=== PATIENT | male | born 1955 | race Caucasian/White ===

== ENCOUNTER 2024-12-31 11:46 | Emergency (ER) | payer MEDICARE, OTHER, SELFPAY ==
[2024-12-31 11:51] VITALS: BP 117/76
--- NOTE | 2024-12-31 12:33 | ED.SKININJ ---
HPI-Injury
General
Chief Complaint: Skin Surface Trauma
Source: patient
Exam Limitations: none
Time Seen by Provider: 12/31/24 12:12
History of Present Illness-Injury
Initial Injury comments:
69-year-old male presents with laceration to left thumb he sustained today. He was using a utility knife to cut a cardboard box and slipped and cut his thumb. No numbness or tingling. No loss of function. No other complaints at this time. Last
tetanus unknown
Past History
Social History
Tobacco: Smoker
Personal: Single
Living: with family
Employment: Employed
Phy Exam
Physical Exam
Physical Exam:
General: Well-appearing male no acute respiratory distress skin: 3.5 cm superficial ragged laceration
Radial aspect base of left thumb at the edge of the thenar eminence. No significant bleeding. No tendon or vascular involvement
Musculoskeletal exam: Good range of motion left thumb
Neurologic sensation left thumb
Course
Orders/Labs/Results
Orders:
Orders
12/31/24 12:32
Tetanus/Diphth/Acelpertussis [Adacel] 0.5 ml IM .ONCE ONE
Vital Signs
Initial and Last Documented VS:
Initial Vital Signs
Temp Pulse Resp BP Pulse Ox
98.7 F 114 18 117/76 96
12/31/24 11:51 12/31/24 11:51 12/31/24 11:51 12/31/24 11:51 12/31/24 11:51
Last Documented Vital Signs
Temp Pulse Resp BP Pulse Ox
98.7 F 114 18 117/76 96
12/31/24 11:51 12/31/24 11:51 12/31/24 11:51 12/31/24 11:51 12/31/24 11:51
MDM/Problems Addressed
Differential Diagnosis Includes:
Laceration left thumb superficial nature. This was cleansed with saline and held in approximation with benzoin Steri-Strips and skin adhesive. A nonstick dressing was applied. Patient's tetanus vaccine was updated. Stable for discharge with
wound care instructions
*Pulse Oximetry
SaO2: 96
Oxygen Mode of Delivery: Room air
Patient hypoxic: no
*Critical Care Note
Total Time (30-74mins, 75-104mins- exclusive of procedures): Not Applicable
ED Attending Note
-
Portions of this chart may have been created with voice recognition software.� Occasional wrong word or��sound alike� substitutions may have occurred due to the inherent limitations of voice recognition software.
Discharge Plan
Departure
Patient Disposition: Home (Routine Discharge)
Date of Disposition: 12/31/24
Time of Disposition: 12:37
Patient with high blood pressure during this ER visit?: No
Discharge Problem:
Laceration
Instructions: Wound Care (DC)
Prescriptions:
No Action
spironolactone 25 mg Tablet
25 mg PO DAILY
zolpidem [Ambien] 5 mg Tablet
5 mg PO HS
oxycodone 5 mg tablet
5 - 10 mg PO Q4HPRN PRN (Reason: moderate to severe pain) Qty: 14 0RF
Referrals:
Rafael Ortiz DO [Family Provider, Family Practice]
Activity Restrictions/Additional Instructions:
Keep dry for 24 hours. The Steri-Strips and glue will fall off on their own. Return if needed
Interventions
Interventions:
*Risk Screen - Suicide Last Done: 12/31/24 11:51
*General Assessment Last Done: 12/31/24 11:51
*Neglect/Abuse Screening Last Done: 12/31/24 12:21
*ED- Fall Risk Assessment Last Done: 12/31/24 12:21
*ED COVID-19 Vaccine History Last Done: 12/31/24 12:21
ED-Skin Assessment Last Done: 08/12/25 12:21
Discharge Date and Time
Print Language: CYMRO
[2024-12-31] MEDS: ADACEL 0.5 ML IM (12:37)
== END 2024-12-31 12:57 | disposition home or self-care (01) ==
LOC: EMR 11:46
PROVIDERS: EMERGENCY PHYSICIAN Student in an Organized Health Care Education/Training Program; FAMILY PHYSICIAN Family Medicine
DX: S61.012A Laceration without foreign body of left thumb without damage to nail, initial encounter (principal); W26.0XXA Contact with knife, initial encounter; F17.200 Nicotine dependence, unspecified, uncomplicated
CPT/HCPCS: 90471; 12002; 99282; 90715